=== PATIENT | female | born 1970 | race African-American/Black ===

== ENCOUNTER 2017-08-30 23:47 | Emergency (ER) | payer BC, OTHER | END 2017-08-31 00:26 | disposition home or self-care (01) | LOC: ER 23:47 | DX: M54.6 Pain in thoracic spine (principal); M79.621 Pain in right upper arm | CPT/HCPCS: 99281 ==

== ENCOUNTER 2017-11-19 22:08 | Emergency (ER) | payer BC, OTHER | END 2017-11-19 23:05 | disposition home or self-care (01) | LOC: ER 22:08 | DX: S69.91XA Unspecified injury of right wrist, hand and finger(s), initial encounter (principal); X58.XXXA Exposure to other specified factors, initial encounter; Y93.89 Activity, other specified; Y92.89 Other specified places as the place of occurrence of the external cause; Y99.8 Other external cause status | CPT/HCPCS: 99283 ==

== ENCOUNTER 2020-09-12 18:18 | Emergency (ER) | payer OTHER, BC ==
[~2020-09-12] VITALS: Ht 160 cm; Wt 72.7 kg
[~2020-09-12 18:18] MED LIST: TRAM50TA PO
[2020-09-12 18:20] VITALS: BP 145/84
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
[2020-09-12] MEDS ORDERED: IBUP-1007 PO (19:36)
[2020-09-12] MEDS ORDERED: CYCL10TA2 PO (19:36)
[2020-09-12] MEDS ORDERED: METH4TAB2 PO (19:36)
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
== END 2020-09-12 21:06 | disposition home or self-care (01) ==
LOC: ER 18:18
DX: R51.9 Headache, unspecified (principal); M54.2 Cervicalgia; M54.42 Lumbago with sciatica, left side; G89.11 Acute pain due to trauma; K21.9 Gastro-esophageal reflux disease without esophagitis; J45.909 Unspecified asthma, uncomplicated; Z90.710 Acquired absence of both cervix and uterus; V49.88XA Car occupant (driver) (passenger) injured in other specified transport accidents, initial encounter; Y92.488 Other paved roadways as the place of occurrence of the external cause; Y93.89 Activity, other specified; Y99.8 Other external cause status
CPT/HCPCS: 70450; 72100; 72125; 99285-25

== ENCOUNTER 2021-01-13 00:27 | Emergency (ER) | payer BC, OTHER ==
[~2021-01-13] VITALS: Ht 160 cm; Wt 79.5 kg
[~2021-01-13 00:27] MED LIST changes: +CYCL10TA2 PO; +IBUP-1007 PO; +METH4TAB2 PO
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
[2021-01-13] MEDS ORDERED: fentaNYL PF VIAL 100 MCG/2 ML VIAL IM ONE (02:30)
[2021-01-13] MEDS ORDERED: KETOROLAC 60 MG/2 ML VIAL. IM ONE (02:30)
[2021-01-13 02:44] VITALS: BP 113/66
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
== END 2021-01-13 03:00 | disposition home or self-care (01) ==
LOC: ER 00:27
DX: M25.511 Pain in right shoulder (principal); J45.909 Unspecified asthma, uncomplicated; K21.9 Gastro-esophageal reflux disease without esophagitis
CPT/HCPCS: 73030; 96372; 99285; J1885; J3010; 99284